=== PATIENT | male | born 1985 | race Caucasian/White ===

== ENCOUNTER 2024-11-09 06:56 | Emergency (ER) | payer OTHER ==
[~2024-11-09] VITALS: Ht 172.7 cm; Wt 109.0 kg
[2024-11-09 07:04] VITALS: TEMP 98.2
[2024-11-09] MEDS: LORazepam 1 MG TABLET PO ONE (09:07)
[2024-11-09 10:20] VITALS: BP 121/77; PULSE 81; RESP 18; O2SAT 99
[2024-11-09] MEDS ORDERED: IBUP-1492 PO (10:27)
== END 2024-11-09 10:33 | disposition home or self-care (01) ==
LOC: EMS 06:56
DX: S43.004A Unspecified dislocation of right shoulder joint, initial encounter (principal); F12.90 Cannabis use, unspecified, uncomplicated; W19.XXXA Unspecified fall, initial encounter; Y93.89 Activity, other specified; Y92.89 Other specified places as the place of occurrence of the external cause; Y99.8 Other external cause status
CPT/HCPCS: 23650; 99284; 73030-TC; Z7502; Z7610